=== PATIENT | female | born 1975 | race Caucasian/White ===

== ENCOUNTER 2020-08-15 19:58 | Emergency (ER) | payer MEDICAID, SELFPAY ==
[2020-08-15 19:59] VITALS: BP 153/78; PULSE 101; RESP 18; TEMP 36.8; O2SAT 98; BMI 22.6
--- NOTE | 2020-08-15 20:31 | CT_ITS ---
STUDY: CT PELVIS WITH CONTRAST REASON FOR EXAM: Female, 45 years old. Abscess. RADIATION DOSAGE (If Supplied By Facility): CTDIvol = ( 25.94 ) mGy, DLP = ( 1138.35 ) mGycm TECHNIQUE: Transaxial imaging of the pelvis was performed without oral contrast. 100 mL of ISOVUE-370 was administered intravenously. Multiplanar coronal and sagittal images were reformatted. Individualized dose optimization techniques were used for this CT. COMPARISON: CT of the abdomen and pelvis, 05/29/2016. FINDINGS: Normal urinary bladder. Uterus is anteverted. It is an IUD in satisfactory position. No adnexal mass. Normal visualized small intestine. Normal visualized colon. Normal appendix. There is no pelvic fluid. There is no free air within the visual peritoneal cavity. There is no pelvic lymphadenopathy or mass lesion. Normal visualized pelvic arteries. Normal abdominal wall. There is a left sided perirectal abscess measuring 1.5 x 2.7 x 1.3 cm. This contains an air-fluid level. No obvious communication with bowel or the skin surface. Normal osseous structures. CT/Pelvis WITH IV Contrast IMPRESSION: 1. Left perirectal abscess containing air-fluid level. 2. IUD. Electronically Signed: Reza Monroe DO at 21:50 EST Tel [phone], Service support ,
--- NOTE | 2020-08-15 20:32 | ED.VIS.GEN ---
History of Present Illness Chief Complaint: Abscess Informant: Patient Onset: Days - 2 Context: Gradual Onset Timing: Continuous Quality: sore, swollen Location: by anus Current Severity: Severe Maximum Severity: Severe Worsened by: sitting on affected area, having BM Relieved by: lying on side Associated Symptoms: none; no fevers/chills/systemic sx Narrative: Patient presenting with a tender swollen area at her anus. She has never had this before. Started spontaneously 2 or 3 days ago. Denies any fevers or chills or other systemic symptoms, no abdominal pain. She has had no discharge or bleeding that she is aware of. It is very hard to see and evaluate because of its location. She did have an abscess that was drained a year or so ago but it was more in her medial buttock and not perianal. She denies a history of colorectal problems and is on no medications for any other medical problems such as diabetes. - Past Medical History (1) Anxiety Status: Chronic Past Medical History - Allergies and Home Meds Allergies/Adverse Reactions: Allergies No Known Allergies Allergy (Verified 08/15/20 19:58) Primary Care Physician: Care Physician,No Primary [Primary Care Provider] - Surgical History: no surgical history Lives: Spouse/ Significant Other Smoking Status: Current every day smoker Drugs: - - hx IVDU Review of Systems General: Denies: Chills, Fever, Sweats Eyes: Denies: Visual changes - bilaterally, Diplopia ENT: Denies: Rhinorrhea, Sore throat Cardiovascular: Denies: Chest pain, Palpitations Respiratory: Denies: Dyspnea, Cough, Dyspnea on exertion Gastrointestinal: Reports: - - Perianal pain. See HPI.. Denies: Abdominal pain, Nausea, Vomiting, Diarrhea, Melena, Hematochezia Genitourinary: Denies: Dysuria, Hematuria, Frequency Musculoskeletal: Denies: Back pain, Extremity Pain Skin: Reports: Abscess - See HPI. Denies: Rash, Wounds Neurological: Denies: Headache, Weakness, Numbness Physical Exam Vital Signs/Narrative: Vital Signs Temp Pulse Resp BP Pulse Ox 08/15/20 19:59 98.2 F 101 H 18 153/78 H 98 Inital Vital Signs reviewed: Yes General: Well nourished, Well developed, No Acute Distress Head: Normocephalic, Atraumatic ENT: Moist mucous membranes, No rhinorrhea Neck: Supple, Nontender Cardiovascular: Regular rate, Regular rhythm, No murmurs Respiratory: No distress, CTA bilaterally, Chest nontender Abdomen: Soft, Nontender, Nondistended, Normal bowel sounds Rectal: Tenderness - Patient has a prominent swollen erythematous very tender area at the 9 o'clock position, left perianal, palpable within the rectum, ALLEN limited due to pain. There is surrounding cellulitis. No spontaneous discharge or other lesions/hemorrhoid. Skin: Normal color, No rash, - - Perianal abscess Neurological: Alert, Oriented x3, Cranial nerves II-XII grossly intact, Normal Strength, Normal Sensation, Normal Gait Psychological: Normal affect, Normal Mood Diagnostic/Tx/Re-eval Impressions Pelvis CT 08/15/20 20:31 IMPRESSION: 1. Left perirectal abscess containing air-fluid level. 2. IUD. Electronically Signed: Reza Monroe DO at 21:50 EST Tel [phone], Service support , 08/15/20 20:31 CT Pel [Pelvis WITH IV Contrast] [CT] Stat Laboratory Results 08/15/20 08/15/20 20:42 20:42 WBC 10.7 RBC 4.88 Hgb 13.6 Hct 41.5 MCV 85.0 MCH 27.9 MCHC 32.8 RDW Std Deviation 40.9 RDW Coeff of Will 13.2 Plt Count 222 MPV 10.5 Immature Gran % (Auto) 0.400 Neut % (Auto) 77.2 H Lymph % (Auto) 15.3 L [place] % (Auto) 6.2 Eos % (Auto) 0.6 Baso % (Auto) 0.3 Absolute Neuts (auto) 8.3 H Absolute Lymphs (auto) 1.64 Nucleated RBC % 0 Sodium 139 Potassium 3.7 Chloride 104 Carbon Dioxide 29.0 Anion Gap 6 BUN 14 Creatinine 0.72 Estim Creat Clear Calc 76.02 Est GFR (MDRD) Af Amer 114 Est GFR (MDRD) Non-Af 94 BUN/Creatinine Ratio 19.4 Glucose 114 H Calcium 8.8 - Medical Decision Making CT of the pelvis was performed, and shows perirectal abscess 2.7 cm at its largest dimension. Patient was given morphine and maintained n.p.o., clinically and hemodynamically remained stable, discussed with surgeon on-call Dr. Liao for the possibility of operative management. She looked at the images, we discussed the case and clinical findings, her recommendation is to perform a bedside incision and drainage after procedural sedation as it appears that that would be an adequate drainage for this particular abscess. If it does drain, she would follow-up with the patient in the office tomorrow. I presented this recommendation to the patient, and she prefers to have it drained tonight so that she can go home tonight. This was done, see the attached procedure note. Patient recovered uneventfully and will be discharged home with her significant other. She was given an empiric dose of IV vancomycin 15 mg/kg given her history of IV drug use and possible MRSA colonization, and will be prescribed Flagyl and Levaquin, which is recommended given the significant surrounding cellulitis, around which a line was drawn with a skin marking pen. Procedures Procedure(s): Procedural sedation-we waited until the patient was n.p.o. for 6 hours, she was pretreated with morphine about an hour prior to the procedure, followed by propofol 80 mg, then an additional 20 mg, followed by an additional 60 mg for a total of 160 mg. Her vital signs remained stable. Good anesthesia was obtained. She was on the monitor, 2 L nasal cannula, IV fluids, and continuous pulse oximetry throughout the procedure. There were no complications. Tolerated well. Complex incision and drainage perirectal abscess --after sterile prep and drape with chlorhexidine, 4 cc of local 1% lidocaine were placed into the skin over the abscess, near the anus but avoiding the rectum and mucosa, followed by an incision made lateral to the anal verge approximately 1 cm long with a #10 blade, the area was then probed bluntly with hemostats, entering the abscess cavity and yielding a large amount of foul-smelling purulent discharge. This was expressed, irrigated with saline, and further deloculated with hemostats, irrigated again. The cavity was packed with 1 inch iodoform gauze, and dressed with gauze and tape. Patient regained consciousness and was experiencing less pain than prior to the procedure. No complications. Tolerated well. ED Disposition - Plan for ED Patient: Disposition: Home or Assisted Living Diagnosis: Perirectal abscess Instructions: ED ABSCESS Aubree-Anal IandD Prescriptions: metroNIDAZOLE [Flagyl] 500 mg PO Q8H #30 tab Prescription Printed Levofloxacin [Levaquin] 750 mg PO DAILY #7 tab Prescription Printed Referrals: Tracee Liao MD [STAFF PHYSICIAN] - 1 Day for another exam (call in AM for appt time)
[2020-08-15 20:49] LABS: Absolute Lymphocyte Count 1.64 X10^3/uL (0.83-4.51); Absolute Neutrophil Count 8.3 X10^3/uL (2.0-7.7); Basophil# 0.03 X10^3/uL; Basophil% 0.3 % (0-1); Eosinophil# 0.06 X10^3/uL; Eosinophils% 0.6 % (0-5); Hematocrit 41.5 % (37-47); Hemoglobin 13.6 g/dL (12.0-15.0); Lymphocyte # 1.64 X10^3/ul (4.0); Lymphocyte % 15.3 % (19-41); Mean Corp Hgb Conc 32.8 g/dL (32-36); Mean Corpuscular Hgb 27.9 pg (27.0-32.0); Mean Platelet Vol. 10.5 fl (6.2-12.0); Monocyte# 0.66 X10^3/uL; Monocyte% 6.2 % (0-10); NRBC Flagged by Analyzer 0 % (0-5); Neutrophil # 8.27 X10^3/uL (2.7-7.7); Neutrophil % 77.2 % (47-70); Platelet Count 222 K/mm3 (150-450); RBC Distribution Width CV 13.2 % (11.6-14.6); RBC Distribution Width SD 40.9 fl (35.1-43.9); Red Blood Count 4.88 M/mm3 (4.2-5.4); White Blood Count 10.7 K/mm3 (4.4-11.0)
[2020-08-15] MEDS: Ondansetron 4 MG/2 ML Vial IV (20:49)
[2020-08-15] MEDS: Morphine 4 MG/ML Syringe IV ×2 (20:49→22:46)
[2020-08-15 21:02] LABS: Anion Gap 6 (5-15); BUN 14 mg/dL (7-18); BUN/Creat Ratio 19.4 RATIO (10-20); Calcium,Total 8.8 mg/dL (8.5-10.1); Chloride 104 mmol/L (98-107); Creatinine, Serum 0.72 mg/dL (0.55-1.02); EST Glomerular Filtration Rate 94 mL/min (>60); Est Glom Filt Rate - Afr Amer 114 mL/min (>60); Estimated Creatinine Clearance 76.02 ml/min; Glucose 114 mg/dL (74-106); Potassium 3.7 mmol/L (3.5-5.1); Sodium Level 139 mmol/L (136-145)
[2020-08-15 22:54] VITALS: BP 121/74; PULSE 94; RESP 20; O2SAT 96
[2020-08-15 23:49] VITALS: BP 115/73; PULSE 92; RESP 17; O2SAT 100
[2020-08-15 23:51] VITALS: BP 109/77; BP 114/81; BP 121/76; BP 121/85; PULSE 89; PULSE 95; PULSE 96; PULSE 97; RESP 14; RESP 20; RESP 22; RESP 24; O2SAT 100
[2020-08-15] MEDS: Propofol 200 MG/20 ML Vial 100 MG IV BOLUS (23:53)
[2020-08-15] MEDS: Lidocaine 1% (20 ml mdv) 20 ML Vial INFILT (23:57)
[2020-08-15] MEDS: Propofol 200 MG/20 ML Vial 60 MG IV BOLUS (23:59)
[2020-08-16 00:08] VITALS: BP 109/77; PULSE 103; RESP 17; O2SAT 97
[2020-08-16 00:13] VITALS: BP 143/97; PULSE 104; RESP 21; O2SAT 97
[2020-08-16 00:18] VITALS: BP 107/72; PULSE 106; RESP 19; O2SAT 96
[2020-08-16 00:19] VITALS: BP 107/72; O2SAT 96
[2020-08-16 01:20] VITALS: BP 110/78; PULSE 100; RESP 12; O2SAT 98
== END 2020-08-16 01:22 | disposition home or self-care (01) ==
PROVIDERS: Emergency Provider Emergency Medicine
DX: K61.1 Rectal abscess (principal); F17.200 Nicotine dependence, unspecified, uncomplicated; Z79.899 Other long term (current) drug therapy; Z97.5 Presence of (intrauterine) contraceptive device
CPT/HCPCS: 10060; 72193; 80048; 85025; 96361; 96365; 96375; 96376; 99152; 99284; J7030; J7050; Q9967; A4216; J2405

== ENCOUNTER 2023-12-13 21:34 | Emergency (ER) | payer SELFPAY ==
[2023-12-13 21:35] VITALS: BP 131/90; PULSE 112; RESP 22; TEMP 36.2; O2SAT 97; BMI 22.6
--- NOTE | 2023-12-13 22:02 | CT_ITS ---
INDICATION: llq abd pain, bloating, vtg EXAMINATION: CT Abdomen And Pelvis W/ Contrast Injection TECHNIQUE: Helically acquired images were obtained of the abdomen and pelvis with sagittal and coronal reconstructed images. Individualized dose optimization techniques were used for this CT. IV contrast dosage and agent: 100 mL of Isovue-370. Oral contrast: None. COMPARISON: 08/15/2020 CT pelvis and 10/03/2014 CT abdomen/pelvis. FINDINGS: VESSELS: No abdominal aortic aneurysm or dissection. LIVER: No evidence of a mass. Mild intrahepatic duct dilation. Dilated common bile duct measuring 1.0 cm in diameter. No evidence of a common duct stone or obstructing mass. GALLBLADDER: Status post cholecystectomy. PANCREAS: No focal solid or cystic mass. No evidence of pancreatitis. SPLEEN: Normal. ADRENAL GLANDS: Normal. KIDNEYS AND URETERS: Left renal stone. Simple bilateral renal cysts with no follow-up recommended. No hydronephrosis or hydroureter. No significant asymmetric perinephric stranding. URINARY BLADDER: Unremarkable. BOWEL: No evidence of diverticulosis or diverticulitis. Appendix appears normal. No evidence of bowel obstruction. Diffusely dilated small bowel and colon. Small bowel is fluid-filled with loops of thickened and hyperenhancing aldridge. REPRODUCTIVE ORGANS: IUD within the uterus. PERITONEUM: No intraabdominal free fluid or free air. LYMPH NODES: No pathologically enlarged mesenteric or retroperitoneal lymph nodes. ABDOMINAL WALL: No abdominal or pelvic wall hernia. BONES: No acute abnormality. LOWER CHEST: Fluid in the distal esophagus which may represent gastroesophageal reflux. CT/Abdomen/Pelvis W IV Cont ONLY IMPRESSION: 1. Diffusely dilated colon and small bowel consistent with ileus. 2. Loops of fluid-filled small bowel with thickened hyperenhancing aldridge which may represent enteritis. 3. Dilated common bile duct measuring 1.0 cm in diameter and mild intrahepatic duct dilation. Status post cholecystectomy. No evidence of a common duct stone or obstructing mass. 4. Fluid-filled distal esophagus which may represent gastroesophageal reflux. Electronically Signed: Hu Garcia DO at 23:56 EDT ,
--- NOTE | 2023-12-13 22:05 | EDS_ITS ---
HPI HPI - GI History of Present Illness Chief Complaint: Abd Pain Informant: patient Narrative Narrative: 48-year-old female presenting with 5 days of abdominal bloating, pain, vomiting, diarrhea, and states she is currently homeless living in someone's backyard (with permission), and states she came here for that reason but also earlier in the day today, she has her dog with her and another dog came and attacked her dog, and in trying to get them broken up and rescue her own dog, the stray grabbed onto her left wrist with its teeth and would like to go when she sustained wounds there. She states subsequently, no one knew the other dog or who would belong to. She does not know if it had a collar on or not. He did not necessarily seem ill, just upset about her dog being there. Last tetanus unknown. With regards to the patient's GI symptoms, she states nausea started first followed by vomiting and then diarrhea now the diarrhea is profuse, more than 10 times per day. No blood or melena. No hematemesis or coffee-ground emesis. She states the diarrhea is more the issue now. She states eating or drinking anything causes her to have diarrhea. She has been drinking fluids relatively poorly because of this, and she has been urinating less and more concentrated urine. No vaginal symptoms. She denies travel out of the country recently. Prior to being here she was in [place] within the last month or 2. She denies any known sick contacts. She denies fevers or chills. Denies any suspicious food intake prior to this other than eating a hamburger as the last real food that she can recall eating prior to the onset of symptoms but no raw meat or fish. [facility] Medical History (Updated 12/14/23 @ 00:[address] Jamaal Conte MD) Anxiety ETOH abuse Abscess and cellulitis Illicit drug use Nicotine addiction Home Medications ?Medication ?Instructions ?Recorded ?Last Taken ?Type ciprofloxacin HCl 500 mg tablet 500 mg PO Q12H 3 days #6 tabs 12/14/23 Unknown Rx (Cipro) metronidazole 500 mg tablet 500 mg PO Q12H 3 days #6 tabs 12/14/23 Unknown Rx ondansetron 8 mg disintegrating 8 mg PO Q8H PRN nausea and 12/14/23 Unknown Rx tablet vomiting #15 tabs Allergy/AdvReac Type Severity Reaction Status Date / Time No Known Allergies Allergy Verified 12/13/23 21:39 Family History (Updated 08/21/20 @ 15:29 by Gemini Gómez) Grandmother Diabetes Father CAD (coronary artery disease) Surgical History S/P laparoscopic cholecystectomy Social History Smoking Status: Light Smoker (<10/day) alcohol intake: current ROS ROS ED Constitutional Constitutional ED: Reports malaise; Denies chills or fever(s) Eyes Eyes: Denies change in vision or diplopia ENT ENT ED: Denies rhinorrhea or sore throat Cardiovascular Cardiovascular: Denies chest pain or palpitations Respiratory/Chest Respiratory/Chest: Reports other Details: hard to take a breath due to bloating in abd ; Denies cough or dyspnea Gastrointestinal Gastrointestinal: Reports abdominal pain, diarrhea, nausea and vomiting; Denies hematemesis, hematochezia or melena Genitourinary Genitourinary ED: Denies dysuria or hematuria Musculoskeletal Musculoskeletal: Reports extremity pain; Denies back pain or neck pain Integumentary Reports as per HPI and wounds; Denies abscess or rash Neurologic Neurologic: Denies headache(s), paresthesias or weakness Psychiatric Psychiatric: Reports anxiety; Denies suicidal thoughts EXAM Physical Exam Const Vital Signs: 12/13/23 21:35 12/13/23 23:35 Temperature 97.1 F L Temperature Source Temporal Pulse Rate 112 H 89 Respiratory Rate 22 H 20 H Blood Pressure 131/90 H 139/87 H Blood Pressure Mean 103 104 Pulse Ox 97 99 Oxygen Delivery Method Room Air Room Air Positive well nourished and well developed General Appearance ED: well developed and NAD HEENT Reports moist mucous membranes normocephalic and atraumatic Eyes PERRL and EOMs intact bilaterally Neck full ROM and supple Resp normal respiratory effort and clear to auscultation bilaterally Cardio regular rate, regular rhythm and no murmurs Rate: tachycardic GI Inspection: abdominal distention Auscultation: normoactive bowel sounds Palpation: soft and tender other (Diffusely tender more so in the left lower quadrant without guarding or rebound) Back/Spine no CVA tenderness General Back: other FROM Extremity Extremity Narrative: Multiple small superficial skin wounds left wrist/forearm, both volar and dorsal, and dorsum of the hand. No obvious finger injury. Limited range of motion all fingers due to pain in the wrist and distal half of the forearm. No palpable foreign bodies. No active bleeding. No tendons exposed or other structures; the wounds are too small to inspect for this. There is localized soft tissue swelling and tenderness around all of this no deformities. General Extremety ED: Yes tenderness; Negative for edema or pulses abnormal General Extremity: Negative for edema or pulses abnormal Neuro oriented x3, CN's II-XII intact bilaterally and no sensory deficits noted Sensorium / Orientation: awake and alert Motor Exam: strength 5/5 throughout Psych Mood & Affect: anxious Skin no rashes or lesions noted and no wounds MDM MDM MDM Narrative Medical decision making narrative: Infectious etiologies I think most likely with regards to the patient's GI symptoms, however she is very distended and tender in the left lower quadrant so I think a CT is warranted in order to evaluate for infectious or inflammatory etiologies other than those that cause enteritis. With regards to her left arm injury, I am obtaining x-rays to rule out foreign bodies such as canine teeth, less inclined to find bony injury here, these wounds seem superficial. I had nursing clean them up, get the patient's rings off if she can to keep her left hand swelling from progressing into her fingers and cutting off circulation to her ring finger, and after inspecting the wounds there are two 1 cm each lacerations on the dorsum of the hand and wrist with subcutaneous fat showing that I thought would do better with a single dissolvable suture cross-stitch 1, using Vicryl rapide, see the procedure note. She did not have any others that required suturing, nurses dressed them with bacitracin and a Kerlix wrap and we placed her in a Velcro splint for comfort as she was having a lot of trouble moving her fingers due to pain. She will likely need antibiotics for these wounds to prevent infection but I am waiting until I have more information about the etiology of her GI issue before providing antibiotics. With regards to her labs which I reviewed, she does not have a leukocytosis or left shift, she is dehydrated, hence the fluids we gave her, her bicarb is low likely due to loss via GI tract/diarrhea, and her fecal white blood cell smear is positive suggesting a bacterial etiology. Given this and the need for antibacterial coverage given the dog bite involves her hand, I am going to put her on Cipro and Flagyl for 3 days. Three-view x-ray series of the left wrist on my interpretation shows no acute bony injury or foreign body from the bites. CT images are reviewed, I reviewed the report and agree with it. Basically consistent with gastroenteritis without any acutely inflamed areas. She was treated with morphine, Reglan, IV fluids, as well as some dicyclomine and simethicone. She is tolerating oral fluids. With regards to the patient's dog bite and risk of rabies, if the dog is stray, the risk of rabies is still relatively low, and since this patient is homeless and has social determinants of care that will limit her ability to return and follow-up, I do not think she needs to start the rabies series. Lab Data Attestation: I reviewed the patient's lab results. Labs: Laboratory Results - last 24 hr 12/13/23 22:01 WBC 5.3 RBC 4.83 Hgb 13.3 Hct 39.4 MCV 81.6 MCH 27.5 MCHC 33.8 RDW Std Deviation 38.4 RDW Coeff of Will 12.9 Plt Count 216 MPV 11.0 Immature Gran % (Auto) 0.000 Neut % (Auto) 61.0 Lymph % (Auto) 27.9 [place] % (Auto) 9.6 Eos % (Auto) 1.1 Baso % (Auto) 0.4 Absolute Neuts (auto) 3.2 Absolute Lymphs (auto) 1.48 Nucleated RBC % 0 Sodium 139 Potassium 4.0 Chloride 114 H Carbon Dioxide 18.0 L Anion Gap 7 BUN 19 H Creatinine 0.73 Estim Creat Clear Calc 76.16 Est GFR (MDRD) Af Amer 110 Est GFR (MDRD) Non-Af 91 BUN/Creatinine Ratio 26.1 H Glucose 89 Calcium 9.2 Total Bilirubin 0.50 AST 26 ALT 16 Alkaline Phosphatase 101 Total Protein 7.7 Albumin 3.6 Globulin 4.1 Albumin/Globulin Ratio 0.9 Lipase 22 Urine Color Yellow Urine Clarity Sl. Cloudy Urine pH 5.0 Ur Specific [place] 1.025 Urine Protein 30 H Urine Glucose (UA) Normal Urine Ketones 5 H Urine Occult Blood 10 H Urine Nitrite Negative Urine Bilirubin 1 H Urine Urobilinogen 1 H Ur Leukocyte Esterase 100 H Urine RBC 0-5 SEEN Urine WBC 5-10 SEEN Ur Squamous Epith Cells 0-5 SEEN Calcium Oxalate Crystal 2+ Urine Bacteria 0 SEEN Urine Mucus 1+ Radiography Diagnostic Testing: Clinical Impression(s) from Imaging Studies Abdomen/Pelvis CT 12/13/23 22:02 IMPRESSION: 1. Diffusely dilated colon and small bowel consistent with ileus. 2. Loops of fluid-filled small bowel with thickened hyperenhancing aldridge which may represent enteritis. 3. Dilated common bile duct measuring 1.0 cm in diameter and mild intrahepatic duct dilation. Status post cholecystectomy. No evidence of a common duct stone or obstructing mass. 4. Fluid-filled distal esophagus which may represent gastroesophageal reflux. Electronically Signed: Hu Garcia DO at 23:56 EDT , Wrist X-Ray 12/13/23 22:45 IMPRESSION: No fracture or dislocation. Electronically Signed: Hu Garcia DO at 23:45 EDT , Procedures Lacerations L dorsal wrist: Length: 1 cm Depth: Sub Q Shape: Linear Prep: Sterile Conditions and Chlorhexadine Laceration repair: Irrigated, Lidocaine, Local and Skin sutures Irrigated (ml): 60 Number of Sutures/[place]: 1 Suture Information: Vicryl (rapide), Simple and 5-0 Comment: loosely approximated L dorsal hand: Length: 1 cm Depth: Sub Q Shape: Linear Prep: Sterile Conditions and Chlorhexadine Laceration repair: Irrigated, Lidocaine, Local and Skin sutures Irrigated (ml): 60 Number of Sutures/[place]: 1 Suture Information: Vicryl (rapide), Simple and 5-0 Comment: loosely approximated Discharge Plan Triage Chief Complaint: Abd Pain Other Complaint: Bite ED Provider: Jamaal Conte Dx/Rx/DC Orders Clinical Impression: Gastroenteritis, Dog bite of left upper extremity, Immunization, tetanus- diphtheria Instructions: ED Dog Bite, ED Vomit Diarrhea [place]ons[place] Adult Prescriptions: New ciprofloxacin HCl [Cipro] 500 mg tablet 500 mg PO Q12H 3 Days Qty: 6 0RF metronidazole 500 mg tablet 500 mg PO Q12H 3 Days Qty: 6 0RF ondansetron 8 mg tablet,disintegrating 8 mg PO Q8H PRN (Reason: nausea and vomiting) Qty: 15 0RF Primary Care Provider: Care Physician,No Primary Referrals: Breanne Bear [Non-Staff] - 3-5 Days if not improving Print Language: Maltese Disposition Disposition: Home, Self Care
[2023-12-13] MEDS: 0.9% Normal Saline (1000mL) 1,000 ML 999 ML IV (22:16)
[2023-12-13] MEDS: Diphth,Pertuss(Acell),Tet Vac 0.5 ML Vial IM (22:17)
[2023-12-13] MEDS: Morphine 4 MG/ML Syringe IV (22:17)
[2023-12-13] MEDS: Metoclopramide 10 MG/2 ML Vial 5 MG IV (22:17)
[2023-12-13 22:19] LABS: Bacteria 0 SEEN /hpf (None Seen)
[2023-12-13 22:21] LABS: Color, Urine Yellow (Yellow); Glucose, Dipstick Normal (Normal); Ketone-Dipstick 5 mg/dl (Negative); Leukocyte Esterase-Dipstick 100 /ul (Negative); Nitrite-Dipstick Negative (Negative); Occult Blood-Urine 10 /ul (Negative); Protein-Dipstick 30 mg/dl (Negative); Specific Gravity, Urine 1.025 (1.002-1.030); Urine Clarity Sl. Cloudy (Clear); Urine Urobilinogen 1 mg/dl (Normal)
[2023-12-13 22:22] LABS: Absolute Lymphocyte Count 1.48 X10^3/uL (0.83-4.51); Absolute Neutrophil Count 3.2 X10^3/uL (2.0-7.7); Basophil# 0.02 X10^3/uL; Basophil% 0.4 % (0-1); Eosinophil# 0.06 X10^3/uL; Eosinophils% 1.1 % (0-5); Hematocrit 39.4 % (37-47); Hemoglobin 13.3 g/dL (12.0-15.0); Lymphocyte # 1.48 X10^3/ul (0.83-4.51); Lymphocyte % 27.9 % (19-41); Mean Corp Hgb Conc 33.8 g/dL (32-36); Mean Corpuscular Hgb 27.5 pg (27.0-32.0); Mean Corpuscular Volume 81.6 fL (81-99); Monocyte# 0.51 X10^3/uL; Monocyte% 9.6 % (0-10); NRBC Flagged by Analyzer 0 % (0-5); Neutrophil # 3.23 X10^3/uL (2.7-7.7); Platelet Count 216 K/mm3 (150-450); RBC Distribution Width CV 12.9 % (11.6-14.6); RBC Distribution Width SD 38.4 fl (35.1-43.9); Red Blood Count 4.83 M/mm3 (4.2-5.4); White Blood Count 5.3 K/mm3 (4.4-11.0)
[2023-12-13 22:29] LABS: Urine Bilirubin Dipstick 1 mg/dL (Negative)
[2023-12-13 22:30] LABS: White Blood Cells 5-10 SEEN /hpf (0-5)
[2023-12-13 22:31] LABS: Calcium Oxalate Crystals Ur 2+ /hpf (<or=2+); Mucous, Urine 1+ /hpf (<or=2+)
[2023-12-13 22:32] LABS: Red Blood Cells-Urine 0-5 SEEN /hpf (0-5)
[2023-12-13 22:33] LABS: Squamous Epithelial Cells - UA 0-5 SEEN /hpf (5-10)
--- NOTE | 2023-12-13 22:45 | RAD_ITS ---
INDICATION: injury EXAMINATION/TECHNIQUE: X-RAY - LEFT XR Wrist Min 3 Views COMPARISON: None. FINDINGS: SOFT TISSUES: Evidence of soft tissue injury of the dorsum of the hand and wrist. BONES/JOINTS: No fracture or dislocation. No significant degenerative changes. No erosive changes. RAD/Wrist min 3 Views IMPRESSION: No fracture or dislocation. Electronically Signed: uH Garcia DO at 23:45 EDT ,
[2023-12-13 22:52] LABS: ALB/GLOB Ratio 0.9 RATIO (0.9-2.4); AST(SGOT) 26 U/L (15-37); Alanine Aminotransfer ALT/SGPT 16 U/L (13-56); Albumin, Serum 3.6 g/dL (3.2-5.0); Alkaline Phosphatase 101 U/L (45-117); Anion Gap 7 (5-15); BUN 19 mg/dL (7-18); BUN/Creat Ratio 26.1 RATIO (10-20); Calcium,Total 9.2 mg/dL (8.5-10.1); Chloride 114 mmol/L (98-107); Creatinine, Serum 0.73 mg/dL (0.55-1.02); EST Glomerular Filtration Rate 91 mL/min (>60); Est Glom Filt Rate - Afr Amer 110 mL/min (>60); Estimated Creatinine Clearance 76.16 ml/min; Globulin 4.1 g/dL (2.2-4.2); Glucose 89 mg/dL (74-106); Lipase 22 U/L (13-75); Protein, Total 7.7 g/dL (6.4-8.2); Sodium Level 139 mmol/L (136-145)
[2023-12-13 23:35] VITALS: BP 139/87; PULSE 89; RESP 20; O2SAT 99
[2023-12-13] MEDS: Lidocaine 1% (20 ml mdv) 20 ML Vial INFILT (23:40)
[2023-12-14] MEDS: Ciprofloxacin 500 MG Tablet PO (00:09)
[2023-12-14] MEDS: metroNIDAZOLE 500 MG Tablet PO (00:09)
[2023-12-14] MEDS: Dicyclomine 10 MG Capsule 20 MG PO (00:10)
[2023-12-14] MEDS: SimETHICONE 80 MG Chewable Tablet 160 MG PO (00:10)
[2023-12-14 01:00] VITALS: BP 115/80; PULSE 84; RESP 18; TEMP 36.6; O2SAT 99
--- NOTE | 2023-12-14 01:05 | ED.RN ---
I CALLED [facility] PER THE PATIENTS REQUEST FOR A RIDE HOME. I WAS INFORMED BY HIM THAT HE WOULD BE 30-45 MINUTES UNTIL HIS ARRIVAL.
--- NOTE | 2023-12-14 01:24 | ED.RN ---
Pt refused to fill out bite exposure form.
--- NOTE | 2023-12-14 01:39 | ED.RN ---
Pt complaining staff is not providing adequate care. Pt complained of not receiving pain medication and dry blankets. See pt MAR for med administration, pt received 4 warm blankets and socks during stay. PT arrived to ED barefoot in dress.
== END 2023-12-14 01:42 | disposition home or self-care (01) ==
PROVIDERS: Emergency Provider Emergency Medicine; Visit Provider Emergency Medicine
DX: S61.412A Laceration without foreign body of left hand, initial encounter (principal); S61.512A Laceration without foreign body of left wrist, initial encounter; W54.0XXA Bitten by dog, initial encounter; K52.9 Noninfective gastroenteritis and colitis, unspecified; F17.200 Nicotine dependence, unspecified, uncomplicated; Z79.899 Other long term (current) drug therapy; Z23 Encounter for immunization; Z59.02 Unsheltered homelessness
CPT/HCPCS: 12001; 73110; 74177; 80053; 81001; 83630; 83690; 85025; 87177; 87209; 87506; 90715; 96361; 96374; 96375; 99285; J7030; Q9967; A4216